=== PATIENT | female | born 1940 | race Caucasian/White ===

== ENCOUNTER 2021-12-08 10:47 | Emergency (ER) | payer OTHER ==
[~2021-12-08] VITALS: Ht 165.1 cm; Wt 72.6 kg
== END 2021-12-08 13:39 | disposition home or self-care (01) ==
LOC: ER 10:47
DX: S92.511A Displaced fracture of proximal phalanx of right lesser toe(s), initial encounter for closed fracture (principal); W18.30XA Fall on same level, unspecified, initial encounter; Y92.89 Other specified places as the place of occurrence of the external cause